=== PATIENT | male | born 2000 | race Two or more races ===

== ENCOUNTER 2025-03-19 13:08 | Emergency (ER) | payer MEDICAID, OTHER ==
[~2025-03-19] VITALS: Ht 180.3 cm; Wt 81.1 kg
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
[2025-03-19] MEDS: ONDANSETRON HCL 4 MG/2 ML VIAL ONE (13:31)
[2025-03-19] MEDS: MORPHINE SULFATE 4 MG/ML SYR/VIAL ONE (13:32)
[2025-03-19] MEDS: ONDANSETRON HCL 4 MG/2 ML VIAL IV ONE (13:32)
[2025-03-19] MEDS: MORPHINE SULFATE 4 MG/ML SYR/VIAL IV ONE (13:33)
[2025-03-19] MEDS: SODIUM CHLORIDE 0.9% 1,000 ML IV ONE (13:33)
[2025-03-19 13:55] LABS: Hematocrit 50.0 % (41.0-53.0); Hemoglobin 17.2 g/dL (13.5-17.5); Mean Corpuscular Hemoglobin 30.6 pg (28.0-32.0); Mean Corpuscular Volume 89.1 fL (80.0-100.0)
[2025-03-19] MEDS: ceFAZolin 1GM/50ML 50 ML IV ONE (14:00)
[2025-03-19 14:09] LABS: Sodium 144 mmol/L (136-145)
--- NOTE | 2025-03-19 14:09 | DVH ---
CLINICAL INDICATION: trauma TECHNIQUE: 3 radiographic views of the left hand were obtained. Comparison: XY L WRIST 3+ VIEW XRAY on DOS: 03/19/25 FINDINGS/IMPRESSION: Comminuted displaced fracture middle phalanx proximal phalanx digit left 5th digit. Comminuted fracture distal portion proximal phalanx left 4th digit. Comminuted fracture proximal portion proximal phalanx left 3rd digit distal portions left 3rd metacar pal.
[2025-03-19 14:10] LABS: Anion Gap 17 (5-15); INR 1.07 (0.9-1.15); Partial Thromboplastin Time 23.6 SEC (24.5-34.5); Prothrombin Time 11.3 sec (9.3-11.8)
[2025-03-19 14:11] LABS: Calcium 9.4 mg/dL (8.7-10.4)
[2025-03-19] MEDS: HYDROmorphone HCL 2 MG/ML VL/or syr IV ONE (14:13)
[2025-03-19 14:15] LABS: Carbon Dioxide 18 mmol/L (20-31); Chloride 109 mmol/L (98-107); Potassium 3.3 mmol/L (3.5-5.1)
[2025-03-19 14:16] LABS: BUN/Creatinine Ratio 7.5 (10.0-20.0); Blood Urea Nitrogen 8 mg/dL (9-23); Glucose 117 mg/dL (74-106)
--- NOTE | 2025-03-19 14:20 | DVH ---
Indication: trauma Technique: XY L WRIST 3+ VIEW XRAYXY Comparison: None FINDINGS/IMPRESSION: Severely comminuted fracture of the 3rd metacarpal head. Comminuted fractures of the 3rd proximal pha lanx, 4th proximal phalanx, 5th proximal phalanx. Comminuted fracture of the 5th middle phalanx. Ext ensive ossific fragments /debris. Radiopaque debris along the dorsum of the left hand.
[2025-03-19 14:30] LABS: Total Cells Counted 100.0 (100)
[2025-03-19 15:31] VITALS: BP 127/70; PULSE 88; RESP 16; TEMP 97.8; O2SAT 95
== END 2025-03-19 17:32 | disposition short-term general hospital (02) ==
LOC: ER 13:12
DX: S62.303A Unspecified fracture of third metacarpal bone, left hand, initial encounter for closed fracture (principal); S61.412A Laceration without foreign body of left hand, initial encounter; S80.212A Abrasion, left knee, initial encounter; S40.212A Abrasion of left shoulder, initial encounter; S30.811A Abrasion of abdominal wall, initial encounter; X58.XXXA Exposure to other specified factors, initial encounter; Y93.89 Activity, other specified; Y92.89 Other specified places as the place of occurrence of the external cause; Y99.8 Other external cause status
CPT/HCPCS: 29125; 36415; 73110; 73130; 80048; 85007; 85027; 85610; 85730; 96365; 96375; 99285; J0690; J1171; J2270; J2405